=== PATIENT | female | born 1965 | race Caucasian/White ===

== ENCOUNTER → 2018-01-09 09:38 | Outpatient (POV) | payer BC, SELFPAY ==
[2018-01-09 09:57] VITALS: BP 126/87; PULSE 67; RESP 18; O2SAT 98
== END ==
PROVIDERS: PCP Family Medicine; Visit Provider Clinical Nurse Specialist Family Health
DX: M46.1 Sacroiliitis, not elsewhere classified (principal); M79.1 Myalgia
CPT/HCPCS: 99202

== ENCOUNTER → 2018-01-16 12:36 | Outpatient (CLI) | payer BC, SELFPAY ==
--- NOTE | 2018-01-16 12:59 | MR_ITS ---
MR lumbar spine wo con, MR 3-d myelogram/MRCP HISTORY: LBP. RT leg pain, numbness, and tingling. PT has a dent on RT side of buttox. Symptoms X1yr. ITS.REASON: BACK PAIN ORDERING PHYSICIAN: Ann La PATIENT AGE: 52 years Comparison: None TECHNIQUE: Standard multiplanar multiecho sequences are performed without contrast. 3-D MIP and myelographic images are also rendered and reviewed FINDINGS: The spinal cord ends at the L1 level. L1-L2: Mild facet and ligamentum hypertrophy with mild bilateral lateral recess and moderate right foraminal narrowing. L2-L3: Moderate bilateral facet and ligamentum flavum hypertrophy with moderate bilateral lateral recess and mild bilateral foraminal narrowing with disc desiccation. L3-L4: Moderate facet and ligamentum flavum hypertrophic change with mild degenerative disc disease and moderate to severe foraminal narrowing on the right and moderate left-sided foraminal narrowing L4-5: 4 mm anterolisthesis of L4 with the degenerative disc disease and bulging disc with right lateral recess narrowing and moderate bilateral foraminal narrowing from facet and ligamentum flavum hypertrophy. There is some impingement upon the L5 nerve roots bilaterally due to the bulging disc and facet hypertrophic change in the lateral recess region. This is slightly greater on the right. There is borderline canal stenosis at this level L5-S1: Mild degenerative disc disease. Moderate left-sided foraminal narrowing from facet hypertrophic change No disc herniation IMPRESSION: 1. Multilevel lumbar spondylosis with degenerative disc disease along with facet and ligamentum flavum hypertrophic change. Please see above for detailed description at each level 2 .Moderate facet and ligamentum flavum hypertrophic change at L3-L4 with mild degenerative disc disease and moderate to severe foraminal narrowing on the right and moderate left-sided foraminal narrowing 3. 4 mm anterolisthesis of L4 on L5 with the degenerative disc disease and bulging disc with right lateral recess narrowing and moderate bilateral foraminal narrowing from facet and ligamentum flavum hypertrophy. There is some impingement upon the L5 nerve roots bilaterally due to the bulging disc and facet hypertrophic change in the lateral recess region. This is slightly greater on the right. There is borderline canal stenosis at this level
== END ==
PROVIDERS: PCP Family Medicine; Visit Provider Clinical Nurse Specialist Family Health
DX: M54.5 Low back pain (principal)
CPT/HCPCS: 72148; 76376

== ENCOUNTER → 2018-01-24 10:05 | Outpatient (POV) | payer BC, SELFPAY ==
[2018-01-24 10:29] VITALS: BP 125/77; PULSE 65; RESP 18; O2SAT 98; BMI 21.7
--- NOTE | 2018-01-24 10:55 | [facility].PAINSOAP ---
[facility] Pain Management SOAP Note Subjective:: Patient is a pleasant 52-year-old white female who presents today for follow-up after right SI joint injection and right piriformis injection. Patient also had recent MRI. Patient states the injection helped after 3 days however she is having more pain at this time. Patient does have an MRI showing nerve impingement of the L5 nerve root. Patient and I discussed epidural injections along with a neurosurgical evaluation. Patient rates her pain a 5 out of 10 today. ROS General: no recent weight change, no fever, no sleep disturbances Respiratory: no cough, no shortness of air, no recurring pulmonary infections Cardiovascular/Peripheral Vascular: No chest pain, No palpitations, no edema, no shortness of breath. Gastrointestinal: no incontinence, normal bowel movements reported Genitourinary: no incontinence Musculoskeletal: Back pain, leg pain Psychiatric: normal mood/ affect Neurological: [denies weakness in extremities], [denies balance issues] Objective:: Physical Exam General: Alert and oriented x3, no acute distress, pleasant and cooperative, [on room air] Lungs: Resps E/U, Symmetrical chest expansion, Eyes: PERRL Musculoskeletal: Flexion and extension of lumbar spine somewhat guarded secondary to pain, deep tendon reflexes normal, strength in upper and lower extremities [5/5], normal gait noted Neurological: speech clear, supervisor heavy equipment equal, no gross sensory deficits Assessment:: 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 We will also send her for an evaluation by neurosurgeon. I will follow-up with the patient after her injection. Patient's not on any anticoagulation therapy. Patient is continuing a home stretching regimen. Patient's tried and failed physical therapy and anti-inflammatories. This note was dictated using voice recognition software and may contain errors or omissions
--- NOTE | 2018-01-24 10:58 | P.CONS_ITS ---
[facility] Pain Management SOAP Note Subjective:: Patient is a pleasant 52-year-old white female who presents today for follow-up after right SI joint injection and right piriformis injection. Patient also had recent MRI. Patient states the injection helped after 3 days however she is having more pain at this time. Patient does have an MRI showing nerve impingement of the L5 nerve root. Patient and I discussed epidural injections along with a neurosurgical evaluation. Patient rates her pain a 5 out of 10 today. ROS General: no recent weight change, no fever, no sleep disturbances Respiratory: no cough, no shortness of air, no recurring pulmonary infections Cardiovascular/Peripheral Vascular: No chest pain, No palpitations, no edema, no shortness of breath. Gastrointestinal: no incontinence, normal bowel movements reported Genitourinary: no incontinence Musculoskeletal: Back pain, leg pain Psychiatric: normal mood/ affect Neurological: [denies weakness in extremities], [denies balance issues] Objective:: Physical Exam General: Alert and oriented x3, no acute distress, pleasant and cooperative, [ on room air] Lungs: Resps E/U, Symmetrical chest expansion, Eyes: PERRL Musculoskeletal: Flexion and extension of lumbar spine somewhat guarded secondary to pain, deep tendon reflexes normal, strength in upper and lower extremities [5/5], normal gait noted Neurological: speech clear, banquet server equal, no gross sensory deficits Assessment:: 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 We will also send her for an evaluation by neurosurgeon. I will follow-up with the patient after her injection. Patient's not on any anticoagulation therapy. Patient is continuing a home stretching regimen. Patient's tried and failed physical therapy and anti-inflammatories. This note was dictated using voice recognition software and may contain errors or omissions
== END ==
PROVIDERS: PCP Family Medicine; Visit Provider Clinical Nurse Specialist Family Health
DX: M51.16 Intervertebral disc disorders with radiculopathy, lumbar region (principal); M46.1 Sacroiliitis, not elsewhere classified
CPT/HCPCS: 99213